=== PATIENT | female | born 2000 | race Hispanic/Latino ===

== ENCOUNTER 2019-05-14 09:35 | Outpatient (CLI) | payer OTHER ==
--- NOTE | 2019-05-14 09:59 | ULT ---
US Gallbladder RUQ: 05/14/2019 12:00 AM CLINICAL HISTORY: Elevated LFTs. STUDY: Limited right upper quadrant ultrasound of abdomen. COMPARISON: None. FINDINGS: Liver: Size: Normal. Echogenicity: Normal. Contour: Smooth. Mass: None. Bile ducts: No intrahepatic or extrahepatic biliary dilatation. Common bile duct measures 4 mm. Gallbladder: Stones and sludge are seen in the gallbladder. Pancreas: Not well visualized. Right kidney: No pelvicalyceal dilatation. Right kidney measuring 10.2 cm in length. IMPRESSION: Cholelithiasis
== END 2019-05-14 09:36 | disposition home or self-care (01) ==
LOC: BICULT 09:35
PROVIDERS: ATTEND Family Medicine
DX: R79.89 Other specified abnormal findings of blood chemistry (principal); K80.20 Calculus of gallbladder without cholecystitis without obstruction
CPT/HCPCS: 76705

== ENCOUNTER 2019-09-13 12:31 | Day surgery (SDC) ==
[2019-09-13] MEDS ORDERED: hydrALAZINE 20 MG/ML VIAL SLOW IVP PRN (12:33)
[2019-09-13 12:56] VITALS: BMI 42.1
--- NOTE | 2019-09-13 13:53 | PDOC.FPROB ---
FMR OB H&P: Medications - Current Allergies/Adverse Reactions: Allergies Allergy/AdvReac Type Severity Reaction Status Date / Time No Known Allergies Allergy Unverified 09/13/19 12:49 FMR OB H&P: A/P - Problem List (1) Current Visit: Yes Status: Acute Discussion: Date/Time: 09/13/19 6330 PCP: Liang- [facility] HPI: Patient sent from clinic for BPP 6/ and growth scan. She affirms movement, denies cxns, ROM, bleeding. Denies SUAREZ, visual changes, SOB, or swelling. History: OB hx: elevated LFTs, morbid obesity PMH: denies asthma, DM, HTN PSH: none Meds: PNV All: NKDA Soc Hx: denies smoking, alcohol, drugs Fam Hx: denies downs, congenital defects REVIEW OF SYSTEMS: Gen: no fever, chills, or sweats Neuro: no numbness/tingling, no weakness, denies headache ENT: denies congestion Eyes: no visual changes Resp: denies cough, no production, no SOB, no wheeze Card: denies chest pain, no palpitations GI: denies nausea, vomiting, diarrhea : no dysuria, no hematuria Skin: no rash, no erythema Psych: denies hx anxiety/depression Vitals: T: 98.5 R: 18 BP: 123/84 P:67 at: 98% on RA PHYSICAL EXAMINATION: General: NAD, alert and oriented x3 HEENT: EOMI, normal sclera Neck: Supple. Full ROM. Heart/Cardiovascular System: RRR, Cap refill < 3 seconds, no rub, no murmur Lungs/Respiratory System: clear to auscultation bilaterally. No increased work of breathing. Room air. Abdomen/Gastro-Intestinal System: no abdominal tenderness, normal bowel sounds, Gravid Extremities: Warm extremities. No cyanosis or edema. Neuro: No gross deficits appreciated Psychiatry: Awake, Alert and cooperative with exam Skin: no lesions, no rashes Musculoskeletal: Full ROM A/P: This is a 19 yo here for repeat BPP and growth scan FHT: 130 baseline, mod variability, no decels, accels present [place]: none # - BPP 8/8, ALISTAIR 9cm, hadlock 25% - Discharged with kick count precautions - Labor precautions given - Follow up at [facility] as scheduled
--- NOTE | 2019-09-17 15:07 | ULT ---
"PRELIMINARY REPORT" EXAM: OB ultrasound COMPARISON: None HISTORY: female patient. Evaluate growth and biophysical profile. TECHNIQUE: Multiplanar grayscale and color Doppler transabdominal sonographic images are obtained. FINDINGS: There is a single intrauterine gestation in cephalic presentation. Cardiac Doppler demonstr ates heart tones with a heart rate of 150 beats per minute. The placenta is difficult to evaluate on this exam but is partially seen laterally on the right and extending posteriorly. The leading edge of the placenta is not seen on the provided images, and there is prominent shadowing from head in the lower uterine segment which also limits evaluation. The cervix is obscured. Ev aluation for placenta previa on this exam is unable to be performed. Amniotic fluid index measures 9.5 cm. biometry measurements: BPD 9.19 cm -- 37 weeks 2 days HC 32.37 cm -- 36 weeks 4 days AC 32.47 cm -- 36 weeks 3 days FL 6.93 cm -- 35 weeks 4 days The estimated gestational age by ultrasound is 36 weeks 2 days with an SAM on 10/09/2019. Gestational age by the last menstrual period is 37 weeks 5 days. The estimated weight by ultrasound is 2903 g (6 pounds, 6 ounces). This represents 69 percentil e for weight. This examination was not performed for evaluation of the anatomical structures. A score of 2 was obtained each for tone, breathing, movements, and amniotic fluid v olume. IMPRESSION: 1. Leading edge of the placenta is not visualized, and there is shadowing from the head which a lso limits adequate evaluation. Placenta previa is unable to be evaluated on this study. 2. Single intrauterine gestation in cephalic presentation with heart tones documented. Estimat ed gestational age by ultrasound is 36 weeks 2 days with SAM on 10/09/2019. 3. Estimated weight is 2903 g (6 pounds, 6 ounces). 4. Amniotic fluid index is 9.5 centimeters. 5. A total biophysical profile score of 8 out of 8 is obtained. Transcribed Date/Time: 09/17/2019 3:07 PM
== END 2019-09-13 13:50 | disposition home or self-care (01) ==
LOC: L&D/OP 12:31
PROVIDERS: ATTEND Obstetrics & Gynecology
DX: Z01.89 Encounter for other specified special examinations (principal); O99.213 Obesity complicating pregnancy, third trimester; E66.01 Morbid (severe) obesity due to excess calories; Z3A.36 36 weeks gestation of pregnancy
CPT/HCPCS: 76815; 76819; 99282

== ENCOUNTER 2019-09-15 02:50 | Day surgery (SDC) | payer SELFPAY ==
[2019-09-15] MEDS ORDERED: hydrALAZINE 20 MG/ML VIAL SLOW IVP PRN (04:20)
--- NOTE | 2019-09-15 04:27 | PDOC.FPROB ---
FMR OB H&P: HPI - History of Present Illness Chief Complaint: CTX Indentification: @ 38W EGA by LMP, c/w 11.5W US History of Present Illness: Patient is a 19 y/o @ 38W EGA by LMP, c/w 11.5W US, who presents to L&D for evaluation of CTX. Patient states that she began to feel CTX on 09/14/19 at ~ 2000, at which time she noted a scant amount of vaginal discharge. Patient states that the CTX were initially Q5M but have since decreased in frequency. Patient states that she can feel the CTX, but that they are not painful. Patient endorses good movement and denies vaginal bleeding or gross loss of fluid. Per chart review, patient's has been complicated only by Maternal Obesity, and all standard labs were negative. Patient is Japanese-speaking only and an low altitude air defense officer was used for the majority of the evaluation. Primary Care Physician: KALEY - Dr. 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 Patient's was present at bedside. - Family History Family History: Denies known Neural Tube Defects, HTN, DM2. FMR OB H&P: Medications - Current Home Medications: Medication Instructions Recorded Confirmed Type Vit37/Iron/Folic Acid 1 tab PO DAILY 09/15/19 09/15/19 History [Prenata Chewable Tablet] Allergies/Adverse Reactions: Allergies Allergy/AdvReac Type Severity Reaction Status Date / Time No Known Allergies Allergy Unverified 09/13/19 12:49 FMR OB H&P: ROS - Review of Systems General: denies: fever/chills, fatigue, recent trauma Eyes: denies: vision changes ENT: denies: rhinorrhea, frequent nose bleed Cardiovascular: denies: chest pain, edema Respiratory: denies: cough, shortness of breath Gastrointestinal: denies: abdominal pain, nausea, vomiting, diarrhea, constipation, bright red blood, dark black tarry stools Genitourinary (Female): reports: vaginal discharge, contractions. denies: dysuria, hematuria, vaginal pain, vaginal bleeding Musculoskeletal: denies: swelling Neurologic: denies: headache FMR OB H&P: Vital Signs - Maternal Vital signs: HR(69) BP(114/65) O2Sat(100% - Room Air) - Heart Tones Baseline: 130 Variability: moderate Acceleration: present Deceleration: variable (x1) FMR OB H&P: Physical Exam - Physical Exam General: NAD, awake, alert and oriented HEENT: normocephalic and atraumatic, EOMI, MMM, conjunctiva clear, no scleral icterus, grossly normal vision, grossly normal hearing, normal nasal mucosa, oropharynx clear Neck: supple, FROM, no LAD Chest: non-tender to palpation, no lesions Breast: symmetric Heart: RRR, normal S1/S2, no murmurs/rubs/gallops, pulses present, no edema General: CTAB, no respiratory distress, good air movement, no rales/rhonchi, no wheezing, no retractions Abdomen: gravid, non-tender, no masses Musculoskeletal: FROM in all four extremities, no misalignment/asymmetry, no atrophy Neurological: no focal deficit Skin: no rash, capillary refill <2 seconds, no jaundice Lymphatic: no unusual bruising or bleeding, no purpura, no petechia, no LAD Psychiatric: intact recent and remote memory, good judgement and insight, normal mood and affect - Pelvic Exam SVE: 3/75/-2 Amezcua score: 6 Membranes: Intact Presentation: Vertex FMR OB H&P: A/P - Problem List (1) Uterine contractions at greater than 20 weeks of gestation Current Visit: Yes Status: Acute Code(s): [id number] - (2) Current Visit: No Status: Acute Disposition: Patient is a 19 y/o female at 38W EGA by LMP, c/w 11.5W US, who presents to L&D for evaluation of Contractions. 1. , Term -Patient admits to ongoing CTX and a scant amount of discharge that may be indicative of progression of labor - suspect longer course due to primigravid mother -Low clinical suspicion for loss of fluids at this time, no reported loss of movement -Maternal VSS w/ 1 elevated SBP of 143 mmHg - will continue to monitor closely -Physical exam remarkable only for Maternal Obesity -FHTs in the 130s w/ 1 variable deceleration noted on admission, acels present w / CTX Q7-9M -SVE (0400): -3/75/-2 -Amezcua Score: 6 -GBS: Negative -HIV, RPR, HepA, HepB and HepC - Negative -Will continue maternal/ monitoring Dispo: Patient is currently stable and being monitored on L&D for evaluation of CTX. Will plan for additional SVE in 2H in order to assess for cervical change and progression of labor. Will order Pre-E labs if patient records an additional elevated BP or any severe-range pressure. Expected LOS < 4H. Discussion: Date/Time: 09/15/19 0424 This H&P was discussed with [] and [] who agree with the above documentation and plan.
--- NOTE | 2019-09-15 05:15 | PDOC.EVN ---
Event Note - Event Note Event Note: OBGYN Faculty Patient seen at bedside Patient of the [facility] Patient is a 19 y/o @ 38W EGA by LMP, c/w 11.5W US, who presents to L&D for evaluation of CTX. CX /-2. One BP initially with systolic of 140s, no sxs. 2 hr obs in process with recheck around 0600. PIH labs ordered.
--- NOTE | 2019-09-15 05:31 | PDOC.EVN ---
Event Note - Event Note Event Note: I have seen the patient at bedside. All follow up BPs have been normal. The nurse confirms with me that the first BP with systolic of 140 was erroneous as arm was bent on the cuff. Labs not drawn because of this. The patient looks very stable with CX unchanged. OK for follow up Tuesday.
--- NOTE | 2019-09-15 06:09 | PDOC.LDPN ---
Labor & Delivery Progress Note - Subjective Subjective: comfortable, no concerns - Objective Vital signs reviewed and normal: yes General: NAD, resting Uterine fundus: non tender SVE: 0530 Dilation: 3 Effacement: 75% Station: -2 FHT: category 1 [place] contractions every: 7M - Assessment (1) Uterine contractions at greater than 20 weeks of gestation Code(s): [id number] - Status: Acute (2) Status: Acute Plan: other (DC w/ strict return precautions) -: Patient is a 19 y/o female at 38W EGA by LMP, c/w 11.5W US, who presents to L&D for evaluation of Contractions. 1. , Term -Patient admits to ongoing CTX and a scant amount of discharge that may be indicative of progression of labor - suspect longer course due to primigravid mother -Low clinical suspicion for loss of fluids at this time, no reported loss of movement -Maternal VSS w/ 1 elevated SBP of 143 mmHg - no additional elevated BPs since admission to L&D -Physical exam remarkable only for Maternal Obesity -FHTs in the 130s w/ 1 variable deceleration noted on admission, acels present w / CTX Q7-9M -SVE (0330): -3/75/-2 -SVE (0530): -3/75/-2 -Amezcua Score: 6 -GBS: Negative -HIV, RPR, HepA, HepB and HepC - Negative -Patient does not appear to be progressing to Active Stage of Labor at this time Dispo: Patient is currently stable following 2H of observation on L&D for evaluation of CTX without subsequent cervical change. Will DC patient at this time with strict return instructions if patient experiences loss of fluids, bloody show, loss of movement or increasingly painful CTX that occur Q5M for >1H. No follow-up required at this time.
== END 2019-09-15 05:50 | disposition home or self-care (01) ==
LOC: L&D/OP 02:50
PROVIDERS: ATTEND Obstetrics & Gynecology
DX: O47.1 False labor at or after 37 completed weeks of gestation (principal); O99.213 Obesity complicating pregnancy, third trimester; E66.9 Obesity, unspecified; Z3A.38 38 weeks gestation of pregnancy
CPT/HCPCS: 99282

== ENCOUNTER 2019-09-15 18:09 | Inpatient (IN) | payer SELFPAY ==
[~2019-09-15 18:09] MED LIST: Bupivacaine/Epinephrine 0.25% 30 ML VIAL ONE
[2019-09-15 18:22] VITALS: BMI 40.5
[2019-09-15] MEDS ORDERED: Misoprostol 200 MCG TAB PR PRN (19:08)
[2019-09-15] MEDS ORDERED: Lidocaine 1% (PF) 30 ML VIAL SC PRN ×2 (19:08→20:17)
[2019-09-15] MEDS ORDERED: hydrALAZINE 20 MG/ML VIAL SLOW IVP PRN ×2 (19:08→20:17)
[2019-09-15] MEDS ORDERED: Ibuprofen 800 MG TAB PO PRN (19:08)
[2019-09-15] MEDS ORDERED: Promethazine HCl 25 MG/ML VIAL IM PRN ×3 (19:08→20:58)
[2019-09-15] MEDS ORDERED: Ondansetron PF 4 MG/2 ML Vial IVP PRN ×3 (19:08→20:58)
[2019-09-15] MEDS ORDERED: Methylergonovine 0.2 MG/ML VIAL IM PRN (19:08)
--- NOTE | 2019-09-15 19:08 | PDOC.FPROB ---
FMR OB H&P: HPI - History of Present Illness Chief Complaint: Worsening CTX Indentification: G1 History of Present Illness: Patient is a 19 y/o @ 38W EGA by LMP, c/w 11.5W US, who presents to L&D for evaluation of worsening CTX. Patient states that she began to feel CTX on 09/14/19 at ~ 2000, at which time she noted a scant amount of vaginal discharge. She was evaluated on L&D for 2H and was ultimately DC'd home with strict return precautions. She returns today stating that her CTX are still Q5M but have become increasingly painful, with significant pain in her lower back as well. Patient denies loss of fluid, bloody show or loss of movement. Per chart review, patient's has been complicated by Maternal Obesity, Fatty Liver, Transaminitis and Cholelithiasis, and all standard labs were negative. Patient is Slovenian-speaking only and an seismic interpreter was used for the majority of the evaluation. Primary Care Physician: KALEY Tavera FMR OB H&P: Current - Care : 1 Gestational age: 38W Due date: 10/09/19 Dating Criteria: LMP, c/w 11.5W US - OB Labs Blood type: O RH: positive Antibody Screen: negative HIV: negative RPR: negative HepBsAg: negative Rubella: immune Quad screen: unknown Urine drug screen: not done Gonorrhea: negative Chlamydia: negative Pap Smear: Not Indicated 1 hour gtt: 116 GBS: negative Additional labs: TB: Negative - Additional Ultrasound Additional: HADLOCK: 82.5% on 08/13 FMR OB H&P: History - Past Medical History PMH: Obesity, Fatty Liver, Transaminitis, Cholelithiasis - OB History 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 - Family History Family History: Denies known Neural Tube Defects, HTN or DM2 FMR OB H&P: Medications - Current Home Medications: Medication Instructions Recorded Confirmed Type Vit37/Iron/Folic Acid 1 tab PO DAILY 09/15/19 09/15/19 History [Prenata Chewable Tablet] Allergies/Adverse Reactions: Allergies Allergy/AdvReac Type Severity Reaction Status Date / Time No Known Allergies Allergy Verified 09/15/19 18:16 FMR OB H&P: ROS - Review of Systems General: denies: fever/chills Eyes: denies: vision changes, floaters ENT: denies: rhinorrhea Cardiovascular: denies: chest pain, edema Respiratory: denies: cough Gastrointestinal: denies: abdominal pain, vomiting, diarrhea, constipation, bright red blood, dark black tarry stools Genitourinary (Female): reports: contractions, vaginal pressure. denies: dysuria, hematuria, vaginal discharge, vaginal bleeding Musculoskeletal: denies: arthritis/arthralgias Neurologic: denies: headache FMR OB H&P: Vital Signs - Maternal Vital signs: Vital Signs - First Documented Temp Pulse Resp BP 98.1 F 93 18 125/64 09/15/19 18:15 09/15/19 18:15 09/15/19 18:15 09/15/19 18:15 - Heart Tones Baseline: 140 Variability: moderate Acceleration: present Deceleration: absent Category: category 1 [place] contractions every: Q5-7M FMR OB H&P: Physical Exam - Physical Exam General: NAD, awake, alert and oriented HEENT: normocephalic and atraumatic, PERRLA, EOMI, MMM, conjunctiva clear, no scleral icterus, grossly normal vision, grossly normal hearing, normal nasal mucosa Neck: supple, FROM, trachea midline Chest: non-tender to palpation, no lesions Breast: symmetric Heart: RRR, normal S1/S2, no murmurs/rubs/gallops, pulses present, no edema General: CTAB, no respiratory distress, good air movement, no rales/rhonchi, no wheezing, no retractions Abdomen: gravid, non-tender Musculoskeletal: normal gait and station, pulses present, FROM in all four extremities, no misalignment/asymmetry, no atrophy Neurological: no focal deficit Skin: no rash, no jaundice Lymphatic: no unusual bruising or bleeding, no purpura, no petechia Psychiatric: intact recent and remote memory, good judgement and insight, normal mood and affect - Pelvic Exam SVE: 4/100/0 Amezcua score: 10 Membranes: Intact, Bulging Presentation: Vertex, confirmed via Bedside US FMR OB H&P: A/P - Problem List (1) Current Visit: No Status: Acute (2) Uterine contractions at greater than 20 weeks of gestation Current Visit: No Status: Acute Code(s): [id number] - Disposition: Patient is a 19 y/o female at 38W EGA by LMP, c/w 11.5W US, who presents to L&D for evaluation of Contractions. 1. , Term -Patient admits to ongoing CTX that have increased in intensity since previous evaluation -No loss of fluid, bloody show or loss of movement -Maternal VSS - will continue to monitor closely -Physical exam remarkable only for Maternal Obesity -FHTs in the 140s w/ acels present, no decels -CTX Q5-7M -SVE (1829): -4/100/0 -Membranes Intact -Amezcua Score: 10 -GBS: Negative -HIV, RPR, HepA, HepB and HepC - Negative -Will continue maternal/ monitoring -LR @ 125 ml/hr -Epidural desired Dispo: Patient is currently stable and admitted to L&D for active management of labor. Will keep NPO at this time, with IVF, and planned Anesthesia consult for epidural placement for pain management. Will plan for additional SVE in 2H in order to assess for cervical change and progression of labor - will likely perform AROM if no change. Will order Pre-E labs if patient records elevated BPs or any severe-range pressures. Expected LOS > 48H. Discussion: Date/Time: 09/15/191906 This H&P was discussed with [] and [] who agree with the above documentation and plan. Addendum - Attending - Attending Attestation Date/Time: 09/16/19 0631 I personally evaluated the patient and discussed the management with Dr. Bradley. I agree with the History, Examination, Assessment and Plan documented above.
[2019-09-15] MEDS ORDERED: Fentanyl 4 mcg/Bup 0.1% Cadd 100 ML ONE (19:50)
[2019-09-15] MEDS ORDERED: NS / Oxytocin 40 units/1000ml 1,000 ML IV PRN (20:17)
[2019-09-15 20:21] LABS: Hemoglobin 12.2 g/dL (12.0-16.0); Mean Corpuscular HGB CONC 33.9 g/dL (32.0-36.0); Mean Corpuscular Hemoglobin 29.1 pg (25.0-35.0); Mean Corpuscular Volume 85.8 fL (78.0-98.0); Platelet Count 385 thou/uL (130-400); RBC Distribution Width 13.1 % (11.5-14.5); Red Blood Cell (RBC) Count 4.18 mill/uL (4.00-5.20)
[2019-09-15] MEDS: Lactated Ringer's 1,000 ML IV SCH ×2 (20:31→21:08)
--- NOTE | 2019-09-15 20:37 | PDOC.OBLPN ---
FMR OB Labor PN: Subj - Interval History Hospital Day: 1 Chief Complaint: Increasingly Painful CTX Indentification: G1 FMR OB Labor PN: Obj - Maternal Vital signs: BP: [112/55] HR: [64] RR: [] Tmax: [] Pox: []% on [] Wt: [] - Procedures Procedures: AROM AROM: clear fluid FMR OB Labor PN: Exam - Physical Exam General: NAD, awake, alert and oriented HEENT: EOMI, conjunctiva clear, no scleral icterus, grossly normal vision, grossly normal hearing Neck: supple, FROM Abdomen: gravid, non-tender Musculoskeletal: pulses present, FROM in all four extremities, no misalignment/ asymmetry, no atrophy Neurological: no focal deficit Skin: no rash, no jaundice Lymphatic: no unusual bruising or bleeding, no purpura, no petechia Psychiatric: intact recent and remote memory, good judgement and insight, normal mood and affect - Pelvic Exam Vulva: normal hair distribution, no lesions Cervix: no masses, no lesions, no blood SVE: 5/100/0 Amezcua score: 12 Membranes: s/p AROM Presentation: Vertex FMR OB Labor PN: Data - Labs Lab results: Laboratory Results - last 24 hr 09/15/19 20:09 WBC 14.0 H RBC 4.18 Hgb 12.2 Hct 35.9 L MCV 85.8 MCH 29.1 MCHC 33.9 RDW 13.1 Plt Count 385 MPV 8.0 FMR OB Labor PN: A/P - Problem List (1) Current Visit: No Status: Acute (2) Uterine contractions at greater than 20 weeks of gestation Current Visit: No Status: Acute Code(s): [id number] - Disposition: Patient is a 19 y/o female at 38W EGA by LMP, c/w 11.5W US, who presents to L&D for evaluation of Contractions. 1. , Term -Patient admits to ongoing CTX that have increased in intensity since previous evaluation -No loss of fluid, bloody show or loss of movement -Maternal VSS - will continue to monitor closely -Physical exam remarkable only for Maternal Obesity -FHTs in the 140s w/ acels present, no decels -CTX intermittently - no clear pattern -SVE (183): -4/100/0 -SVE (2100): -5/100/0 -Membranes: s/p AROM - clear fluid noted -Amezcua Score: 12 -GBS: Negative -HIV, RPR, HepA, HepB and HepC - Negative -Will continue maternal/ monitoring -LR @ 125 ml/hr -Epidural in place Dispo: Patient is currently stable and admitted to L&D for active management of labor. Will keep NPO with ice chips/sips of water at this time, with IVF. Epidural placed successfully by Anesthesia. Will plan for additional SVE in 2H in order to assess for cervical change and progression of labor. Will order Pre- E labs if patient records elevated BPs or any severe-range pressures. Expected LOS > 48H. Discussion: Date/Time: 09/15/192034 This H&P was discussed with [] and [] who agree with the above documentation and plan. Addendum - Attending - Attending Attestation Date/Time: 09/16/19 0631 I personally evaluated the patient and discussed the management with Dr. Bradley. I agree with the History, Examination, Assessment and Plan documented above.
[2019-09-15] MEDS ORDERED: Lactated Ringer's 500 ML IV PRN (20:58)
[2019-09-15] MEDS ORDERED: Acetaminophen 325 MG TAB PO PRN (20:58)
[2019-09-15] MEDS ORDERED: Naloxone HCl 0.4 mg/ml Vial IVP PRN ×2 (20:58)
[2019-09-15] MEDS ORDERED: EPHEDRINE 25 MG/5 ML SYRINGE SLOW IVP PRN (20:58)
[2019-09-15] MEDS ORDERED: diphenhydrAMINE 50 MG/ML VIAL IVP PRN (20:58)
[2019-09-15 21:00] LABS: Syphilis Antibody Nonreactive (Nonreactive); Syphilis Antibody Index 0.04 S/CO (<1.00 Non-Reactive)
[2019-09-15] MEDS ORDERED: Communication Order-Pharmacy FS SCH (21:00)
[2019-09-15] MEDS ORDERED: Fentanyl 4 mcg/Bupivacaine 0.1% Cassette 100 ML EPIDURAL SCH (21:00)
[2019-09-15 22:05] LABS: HBSAg Index 0.25 S/CO (0-0.99); Hep B Surf Ag Non-Reactive S/CO (NonReactive)
--- NOTE | 2019-09-16 01:15 | PDOC.OBLPN ---
FMR OB Labor PN: Subj - Interval History Hospital Day: 1 Chief Complaint: Increasingly Painful CTX Indentification: G1 FMR OB Labor PN: Obj - Maternal Vital signs: BP: [97/53] HR: [73] RR: [] Tmax: [] Pox: []% on [] Wt: [] FMR OB Labor PN: Exam - Physical Exam General: NAD, awake, alert and oriented HEENT: normocephalic and atraumatic, PERRLA, EOMI, MMM, conjunctiva clear, no scleral icterus, grossly normal vision, grossly normal hearing, normal nasal mucosa Neck: supple, FROM, trachea midline Breast: symmetric Abdomen: gravid, non-tender Musculoskeletal: pulses present, FROM in all four extremities, no misalignment/ asymmetry, no atrophy Neurological: no focal deficit Skin: no rash, no jaundice Lymphatic: no unusual bruising or bleeding, no purpura, no petechia Psychiatric: intact recent and remote memory, good judgement and insight, normal mood and affect - Pelvic Exam Vulva: normal hair distribution Cervix: no masses, no lesions, no blood SVE: 8/100/+1 Amezcua score: 12 Membranes: s/p AROM Presentation: Vertex FMR OB Labor PN: Data - Labs Lab results: Laboratory Results - last 24 hr 09/15/19 09/15/19 09/15/19 20:09 20:09 20:09 WBC RBC Hgb Hct MCV MCH MCHC RDW Plt Count MPV Syphilis IgG/IgM Ab Nonreactive Hep Bs Antigen Non-Reactive Blood Type O POSITIVE Antibody Screen NEGATIVE 09/15/19 09/15/19 20:09 21:36 WBC 14.0 H RBC 4.18 Hgb 12.2 Hct 35.9 L MCV 85.8 MCH 29.1 MCHC 33.9 RDW 13.1 Plt Count 385 MPV 8.0 Syphilis IgG/IgM Ab Hep Bs Antigen Blood Type O POSITIVE Antibody Screen FMR OB Labor PN: A/P - Problem List (1) Current Visit: No Status: Acute (2) Uterine contractions at greater than 20 weeks of gestation Current Visit: No Status: Acute Code(s): [id number] - Disposition: Patient is a 19 y/o female at 38W EGA by LMP, c/w 11.5W US, who presents to L&D for evaluation of Contractions. 1. , Term -Patient admits to ongoing CTX that have increased in intensity since previous evaluation -No loss of fluid, bloody show or loss of movement -Maternal VSS - will continue to monitor closely -Physical exam remarkable only for Maternal Obesity -FHTs in the 140s w/ acels present, no decels - several variables noted intermittently with good return to baseline -CTX intermittently - no clear pattern -SVE (1830): 4/100/0 -SVE (2100): 5/100/0 -SVE (0100): 8/100/+1 -Membranes: s/p AROM - clear fluid noted -Amezcua Score: 13 -GBS: Negative -HIV, RPR, HepA, HepB and HepC - Negative -Will continue maternal/ monitoring -LR @ 125 ml/hr -Epidural in place Dispo: Patient is currently stable and admitted to L&D for active management of labor. Will keep NPO with ice chips/sips of water at this time, with IVF. Epidural placed successfully by Anesthesia - pain adequately controlled. Will plan for additional SVE in 2H in order to assess for cervical change and progression of labor. Will order Pre-E labs if patient records elevated BPs or any severe-range pressures. Delivery expected soon. Expected LOS > 48H. Discussion: Date/Time: 09/16/19 0110 This H&P was discussed with [] and [] who agree with the above documentation and plan. Addendum - Attending - Attending Attestation Date/Time: 09/16/19 0694 I personally evaluated the patient and discussed the management with Dr. Bradley. I agree with the History, Examination, Assessment and Plan documented above.
[2019-09-16] MEDS: Lactated Ringer's 1,000 ML IV SCH (01:53)
[2019-09-16] MEDS ORDERED: NS / Oxytocin 40 units/1000ml 0 ML ONE (03:05)
[2019-09-16] MEDS: NS / Oxytocin 40 units/1000ml 1,000 ML IV PRN ×2 (03:40→04:24)
--- NOTE | 2019-09-16 04:41 | PDOC.OPDEL ---
OB Operative/Delivery Note Delivery Dr/Surgeon: Dr. Venu Bradley Assist: Dr. Leah Tavera Pre-Delivery Diagnosis: active labor, ruptured membrane Procedure/Post Delivery Dx: spontaneous vaginal delivery Weeks gestation: 38 Anesthesia: epidural - Additional Findings/Plan Placenta delivered: spontaneous Repaired Obstetrical Laceration: 1st degree (1 1st Degree Vaginal Laceration at the 6 o'clock) Estimated blood loss: 80 ml Compilations/Other Findings: Delivering Physician: Dr. Venu Bradley Assisting Physician: Dr. Leah Tavera Attending Physician: Dr. Jean Edgar Procedure: Spontaneous Vaginal Delivery Anesthesia: Epidural QBL: 80 ml Pre-Op Diagnosis 1. Term Intrauterine , in Labor 2. Maternal History of Obesity, Fatty Liver, Transaminitis, Cholelithiasis Post-Op Diagnosis 1. Term Intrauterine , Delivered 2. Same as Above Indications: A 19 y/o female presents in Active Labor. Delivery Note: This is a 19 y/o > female @ 38W EGA by LMP, c/w 11.5W US, who delivered a viable male infant via at 0315 on . Following an uneventful antepartum course, a vigorous TAGAM was delivered over an intact perineum in the LISA position. Anterior shoulder and then the remainder of the body were delivered. No nuchal cord was present. The head was held down and mouth and nares were bulb suctioned. Cord was clamped after delayed clamping, cut, and cord blood was collected for further evaluation. Placenta delivered intact in the Francis presentation with a 3 vessel cord noted. Fundal massage was performed and the fundus was firm. The cervix and vagina were inspected by the Delivering Physician, Assisting Physician and Attending Physician, and a small amount of retained product of conception was noted, and removed without difficulty using ring forceps. Additionally, a 1st Degree vaginal laceration was noted at the 6 o'clock position. The laceration was repaired in the usual fashion with good approximation and hemostasis, achieved using 3-0 Vicryl. The cervix and vagina were inspected again by both the Delivering Physician and the Assisting Physician, and found to be free of additional lacerations with overall hemostasis achieved. went to the nursery in good condition for routine care. APGARS were 8 and 9 at 1 and 5 minutes, respectively. Patient tolerated the delivery well and went to after routine recovery/care. Post delivery plan: routine recovery Addendum - Attending - Attending Attestation Date/Time: 09/16/19 2606 I personally attended the delivery of the patient and discussed the management with Dr. Bradley. I agree with the procedure description, Assessment and Plan documented above.
[2019-09-16] MEDS ORDERED: Bisacodyl 10 MG SUPP PR PRN (05:23)
[2019-09-16] MEDS ORDERED: Benzocaine-Menthol 82.5 ML CAN TOP PRN (05:23)
[2019-09-16] MEDS ORDERED: Preparation H Ointment 28 GM TUBE PR PRN (05:23)
[2019-09-16] MEDS ORDERED: NS / Oxytocin 40 units/1000ml 1,000 ML IV SCH (05:23)
[2019-09-16] MEDS ORDERED: hydrALAZINE 20 MG/ML VIAL SLOW IVP PRN (05:23)
[2019-09-16] MEDS ORDERED: Lanolin Ointment 7 GM TUBE TOP PRN (05:23)
[2019-09-16] MEDS ORDERED: Milk Of Magnesia 30 ML UDCUP PO PRN (05:23)
[2019-09-16] MEDS: Ibuprofen 800 MG TAB PO SCH ×3 (05:57→21:39)
[2019-09-16] MEDS: Ferrous Sulfate 325 MG TAB PO SCH ×2 (07:32→14:45)
[2019-09-16] MEDS: Prenatal Vitamin 1 TAB PO SCH (08:15)
[2019-09-16] MEDS: Docusate Calcium (SURFAK) 240 MG CAP PO SCH ×2 (08:15→21:39)
[2019-09-16] MEDS ORDERED: Adacel (T-DAP) 0.5 ML SYRINGE IM ONE (09:00)
[2019-09-17] MEDS: Ibuprofen 800 MG TAB PO SCH ×3 (05:16→22:18)
--- NOTE | 2019-09-17 06:27 | PDOC.PP ---
Post Progress Note Post Day #: 1 Subjective: She is doing well. She has no concerns this morning. PO intake tolerated: yes Flatus: yes Ambulation: yes Vital Signs (12 hours) Temp Pulse Resp BP Pulse Ox 09/16/19 23:10 98.6 F 72 16 110/58 L 09/16/19 20:35 99.0 F 88 16 113/53 L 97 Weight Weight 107.048 kg - Physical Examination General: NAD Cardiovascular: no m/r/g, RRR Respiratory: clear to auscultation bilaterally Abdominal: + bowel sounds, lochia (minimal with no clots), no distention, appropriately TTP Extremities: negative homans (B) Skin: no rash Neurological: no gross focal deficits Psychiatric: A&Ox3, normal affect Result Diagrams: 09/17/19 05:49 Additional Labs: Post Labs Blood Type O POSITIVE 09/15/19 21:36 Hep Bs Antigen Non-Reactive S/CO (NonReactive) 09/15/19 20:09 (1) Status: Acute Qualifiers: Weeks of gestation: 38 weeks Qualified Code(s): Z3A.38 - 38 weeks gestation of - Assessment/Plan Pt is a 19 y/o female at 38.1 W EGA by LMP, c/w 11.5W US who is PPD#1 1. , Term - @ 0315 on 09/15 -QBL: 80 mL -GBS: Neg -2nd degree lac -Formula feeding -H&H: 03/13.6 Dispo: inpt, LOS > 48H. Will likely d/c tomorrow.
[2019-09-17] MEDS: Ferrous Sulfate 325 MG TAB PO SCH ×2 (07:09→14:07)
[2019-09-17] MEDS: Docusate Calcium (SURFAK) 240 MG CAP PO SCH ×2 (09:03→22:18)
[2019-09-17] MEDS: Prenatal Vitamin 1 TAB PO SCH (09:04)
--- NOTE | 2019-09-18 06:19 | PDOC.PP ---
Post Progress Note Post Day #: 2 Subjective: She has no complaints. She is feeling well and sitting up in the chair this morning. PO intake tolerated: yes Flatus: yes Ambulation: yes Vital Signs (12 hours) Temp Pulse Resp BP 09/17/19 19:38 97.8 F 60 16 114/61 Weight Weight 107.048 kg - Physical Examination General: NAD Cardiovascular: no m/r/g, RRR Respiratory: clear to auscultation bilaterally, non-labored breathing Abdominal: + bowel sounds, no distention, appropriately TTP Extremities: negative homans (B) Skin: no rash Neurological: no gross focal deficits Psychiatric: A&Ox3 Result Diagrams: 09/17/19 05:49 Additional Labs: Post Labs Blood Type O POSITIVE 09/15/19 21:36 Hep Bs Antigen Non-Reactive S/CO (NonReactive) 09/15/19 20:09 (1) Status: Acute Qualifiers: Weeks of gestation: 38 weeks Qualified Code(s): Z3A.38 - 38 weeks gestation of - Assessment/Plan Pt is a 19 y/o female at 38.1 W EGA by LMP, c/w 11.5W US who is PPD#2 1. , Term - @ 0315 on 09/15 -QBL: 80 mL Total Blood Loss: 152 ml -GBS: Neg -2nd degree lac -Formula feeding -H&H: 03/13.6 Dispo: inpt, LOS > 48H. Will d/c today. Follow up in 2 wks with [facility].
[2019-09-18] MEDS: Ibuprofen 800 MG TAB PO SCH (06:42)
[2019-09-18 07:50] VITALS: BP 113/62; TEMP 98.6
[2019-09-18] MEDS: Prenatal Vitamin 1 TAB PO SCH (09:14)
[2019-09-18] MEDS: Ferrous Sulfate 325 MG TAB PO SCH (09:14)
[2019-09-18] MEDS: Docusate Calcium (SURFAK) 240 MG CAP PO SCH (09:14)
--- NOTE | 2019-09-19 08:07 | PQF ---
DAMIÁN Montez MD [id number] CLINICAL DOCUMENTATION CLARIFICATION FORM: POST DISCHARGE Addendum to original discharge summary date: ____ Late entry note date: __ DATE: 09/19/2019 ATTN: Damián Edgar Please exercise your independent, professional judgment in responding to the clarification form. Clinical indicators are provided on the bottom of this form for your review Please check appropriate box(s): [ ] Associated Diagnosis: Acute blood loss [ X ] Not clinically significant laboratory findings [ ] Other diagnosis [ ] Unable to determine In addition, please specify: Present on Admission (POA): [ ] Yes [ ] No [ X ] Unable to determine For continuity of documentation, please document condition throughout progress notes and discharge summary. Thank You. CLINICAL INDICATORS - SIGNS / SYMPTOMS/ LABS are present in the medical record: Labs RBC: 09/14=4.18 Labs hgb: 09/14=12 09/16=10.0 Labs hct: 09/14=35.9 09/16=29.6 OP Note 09/15 "EBL:80ml" Vital signs BP: 09/1588=329/52 09/1575=967/53 09/1627=937/54 RISK FACTORS HP 09/14-38 weeks gestation HP 09/14-Obesity HP 09/14-Fatty liver HP 09/14-Cholelithiasis OP Note 09/15-s/p OP Note 09/15-First degree laceration TREATMENT Repair of laceration-OP Note 09/15 Laboratory Monitoring-Collected 09/14 IVF-JUL 18 Ferrous Sulfate 325mg Oral-JUL 18 (This form is maintained as a part of the permanent medical record) 2014 [employer]. All Rights Reserved [email or web address] [phone] [email or web address]
== END 2019-09-18 13:30 | disposition home or self-care (01) | DRG 807 ==
LOC: L&D/OP 18:09 → L&D 19:08 → 3SW 09-16 06:04
PROVIDERS: ADMIT Obstetrics & Gynecology; ATTEND Obstetrics & Gynecology
PROC: 10907ZC Drainage of Amniotic Fluid, Therapeutic from Products of Conception, Via Natural or Artificial Opening (ICD-10-PCS; principal; 2019-09-16)
PROC: 10E0XZZ Delivery of Products of Conception, External Approach (ICD-10-PCS; 2019-09-16)
PROC: 0HQ9XZZ Repair Perineum Skin, External Approach (ICD-10-PCS; 2019-09-16)
DX: O99.214 Obesity complicating childbirth (principal); Z37.0 Single live birth; E66.9 Obesity, unspecified; Z3A.38 38 weeks gestation of pregnancy; K76.0 Fatty (change of) liver, not elsewhere classified; R74.0 Nonspecific elevation of levels of transaminase and lactic acid dehydrogenase [LDH]; O99.62 Diseases of the digestive system complicating childbirth; K80.20 Calculus of gallbladder without cholecystitis without obstruction; O70.0 First degree perineal laceration during delivery
CPT/HCPCS: 36415; 51702; 85014; 85018; 85027; 86780; 86850; 86900; 86901; 87340; 99285